=== PATIENT | male | born 1985 | race Hispanic/Latino ===

== ENCOUNTER 2022-01-29 13:53 | Emergency (ER) | payer SELFPAY ==
--- NOTE | 2022-01-29 15:12 | ER ---
Nurse's Notes [facility] Name: Josh Martin Age: 36 yrs Sex: Male : 1985 Arrival Date: 01/29/2022 Time: 13:57 Bed Waiting Private MD: Diagnosis: Presentation: 01/29 13:57 Chief complaint: EMS states: walked into [facility], crying inpain, cold clammy to iw touch according to . has severe upper abd pain and tender to touch , was seen at a clinic two days ago and was diagnosed with GERD . Pt had toradol at [facility] today pain resolved. Coronavirus screen: At this time, the client does not indicate any symptoms associated with coronavirus-19. Ebola Screen: Patient negative for fever greater than or equal to 101.5 degrees Fahrenheit, and additional compatible Ebola Virus Disease symptoms Patient denies exposure to infectious person. Patient denies travel to an Ebola-affected area in the 21 days before illness onset. No symptoms or risks identified at this time. Initial Sepsis Screen: Does the patient meet any 2 criteria? No. Patient's initial sepsis screen is negative. Does the patient have a suspected source of infection? No. Patient's initial sepsis screen is negative. Risk Assessment: Do you want to hurt yourself or someone else? Patient reports no desire to harm self or others. Onset of symptoms was January 29, 2022. 13:57 Method Of Arrival: EMS: [facility] iw 13:57 Acuity: YIN 3 iw Assessment: 14:31 Reassessment: pt not in lobby. iw ED Course: 13:57 Patient arrived in ED. iw 13:59 Triage completed. iw 14:00 Arm band placed on. iw 14:11 Raul Hernandez PA is PHCP. cp 14:11 Raul Chaidez MD is Attending Physician. cp 14:30 Miguel Banda PA is PHCP. [facility] 14:30 Raul Chaidez MD is Attending Physician. mariela Administered Medications: No medications were administered Outcome: 15:12 Patient left the ED. iw Signatures: Miguel Banda PA PA jmm Williams, Irene, RN RN iw Raul Hernandez PA PA cp
== END 2022-01-29 15:12 | disposition left against medical advice (07) ==
LOC: ER 13:53
DX: Z53.21 Procedure and treatment not carried out due to patient leaving prior to being seen by health care provider (principal)
CPT/HCPCS: 99282